=== PATIENT | male | born 1980 | race African-American/Black ===

== ENCOUNTER 2025-01-06 04:44 | Emergency (ER) | payer SELFPAY ==
[~2025-01-06] VITALS: Ht 162.6 cm; Wt 82.0 kg
[2025-01-06 05:20] VITALS: TEMP 36.7; O2SAT 98
[2025-01-06] MEDS: HYDROCODONE/ACETAMINOPHEN 5/325MG TABLET PO ONE (07:48)
[2025-01-06] MEDS: KETOROLAC 15MG/ML VIAL IM ONE (07:48)
[2025-01-06] MEDS ORDERED: IBUP-2028 PO (08:08)
[2025-01-06 08:21] VITALS: BP 122/78; PULSE 60; RESP 10; O2SAT 99
== END 2025-01-06 08:22 | disposition home or self-care (01) ==
LOC: ER 04:44
DX: M54.50 Low back pain, unspecified (principal); Z79.1 Long term (current) use of non-steroidal anti-inflammatories (NSAID); Z79.899 Other long term (current) drug therapy
CPT/HCPCS: 99283; 72100; 96372; J1885